=== PATIENT | female | born 1975 | race Caucasian/White ===

== ENCOUNTER 2023-08-27 12:10 | Inpatient (IN) | payer OTHER ==
[~2023-08-27] VITALS: Ht 172.7 cm; Wt 83.0 kg
[2023-08-27 12:41] VITALS: BP_SYST 121; PULSE 107; RESP 18; TEMP 98.3; O2SAT 100
[2023-08-27 14:19] LABS: BILIRUBIN,URINE 2+ (NEGATIVE); CLARITY/URINE SL CLOUDY (CLEAR); COLOR,URINE YELLOW (YELLOW); GLUCOSE,URINE TRACE (NEGATIVE); KETONES,URINE 3+ (NEGATIVE); LEUKOCYTE ESTERASE ,URINE NEGATIVE (NEGATIVE); NITRITE, URINE POSITIVE (NEGATIVE); PH,URINE 5.5 (5.0-8.0); PROTEIN URINE 1+ (NEGATIVE)
[2023-08-27 14:40] LABS: BLOOD, URINE TRACE (NEGATIVE)
[2023-08-27 14:46] LABS: WBC,URINE 20-50 /HPF (0-3)
[2023-08-27 14:47] LABS: BACTERIA,URINE MANY /HPF (None Seen); MUCUS,URINE 3+ /LPF (None Seen)
[2023-08-27] MEDS: NACL 0.9% 1,000 ML IV SCH (15:10)
[2023-08-27] MEDS: FAMOTIDINE PF 20 MG/2 ML VIAL IVP ONE (15:27)
[2023-08-27] MEDS: PANTOPRAZOLE SODIUM 40 MG/VIAL (PROTONIX) IVP ONE (15:27)
[2023-08-27] MEDS: cefTRIAXone 1 GM IVPB PREMIX 50 ML IV ONE (16:15)
[2023-08-27 17:10] LABS: BASOPHILS % (AUTO) 0.2 % (0.0-2.0); EOSINOPHILS % (AUTO) 0.2 % (0.0-4.0); HEMATOCRIT 31.4 % (36-48); LYMPHOCYTES # (AUTO) 1.3 K/uL (1.0-5.5); LYMPHOCYTES % (AUTO) 9.2 % (20.5-51.5); MEAN CORPUSCULAR HEMOGLOBIN 25 pg (27-31); MEAN CORPUSCULAR HGB CONC 32 % (32-36); MEAN CORPUSCULAR VOLUME 78 fL (79.0-98.0); MONOCYTES % (AUTO) 7.2 % (1.7-9.3); NEUTROPHILS % (AUTO) 83.2 % (40.0-70.0); PLATELET COUNT (AUTO) 438 K/uL (130-430); RED BLOOD CELL COUNT(AUTO) 4.04 MIL/uL (4.2-6.2); RED CELL DISTRIBUTION WIDTH 14.6 % (9.0-15.0); WHITE BLOOD COUNT (AUTO) 14.4 K/uL (4.8-10.8)
[2023-08-27 17:36] LABS: CALCIUM 8.7 mg/dL (8.4-11.0); CREATININE 0.73 mg/dL (0.55-1.30); POTASSIUM 3.9 mmol/L (3.5-5.1)
[2023-08-27 18:04] LABS: ALBUMIN 2.5 g/dL (3.4-4.8); BILIRUBIN,DIRECT 0.2 mg/dL (0.0-0.3); TOTAL BILIRUBIN 0.5 mg/dL (0.0-1.0)
[2023-08-27 18:46] LABS: PROTHROMBIN TIME 15.5 SECS (9.5-12.5)
[2023-08-27] MEDS ORDERED: NALOXONE HCL 0.4 MG/ML AMP (NARCAN) IVP PRN (21:15)
[2023-08-27] MEDS: HYDROmorphone 1 MG/ML INJ. CARTRIDGE IVP PRN (21:29)
[2023-08-27] MEDS ORDERED: PIPERACILLIN/TAZO 3.375/DEX-IS 50 ML IV SCH (22:00)
[2023-08-27 22:49] VITALS: BP_SYST 115; PULSE 93; RESP 16; TEMP 96.9
[2023-08-27] MEDS: PIPERACILLIN/TAZO 3.375/DEX-IS 50 ML IV SCH (23:26)
[2023-08-27 23:35] VITALS: O2SAT 96
[2023-08-28 08:01] VITALS: BP_SYST 112; PULSE 100; RESP 17; TEMP 97.7; O2SAT 94
[2023-08-28 11:30] VITALS: BP_SYST 111; PULSE 92; RESP 18; TEMP 98.5; O2SAT 96
[2023-08-28 17:01] VITALS: BP_SYST 104; PULSE 85; RESP 18; TEMP 98.3; O2SAT 95
[2023-08-28] MEDS: BISACODYL 5 MG TABLET.DR (DULCOLAX) PO ONE (17:33)
[2023-08-28] MEDS: GOLYTELY / COLYTE SOLUTION 4 LITERS PO ONE (17:33)
[2023-08-28 20:00] VITALS: BP_SYST 102; PULSE 82; RESP 18; TEMP 97.4; O2SAT 100
[2023-08-28] MEDS: ONDANSETRON HCL 4 MG/2 ML VIAL IVP PRN (22:29)
[2023-08-29] VITALS (7 sets, daily range): BP systolic 100–115; PULSE 59–89; RESP 16–18; TEMP 96–97.5; O2SAT 97–100
[2023-08-29 07:54] LABS: INR 1.5 (0.8-1.2); PROTHROMBIN TIME 15.5 SECS (9.5-12.5)
[2023-08-29] MEDS: MEPERIDINE 100 MG INJ. 100 MG/ML VIAL ONE (09:13)
[2023-08-29] MEDS: MIDAZOLAM HCL 5 MG/5 ML VIAL ONE (09:14)
[2023-08-29 20:17] LABS: PROTHROMBIN TIME 10.8 SECS (9.5-12.5)
[2023-08-30] VITALS: BP_SYST 103; PULSE 71; RESP 18; TEMP 97.5; O2SAT 98
[2023-08-30 04:00] VITALS: RESP 20
[2023-08-30 06:04] LABS: BASOPHILS % (AUTO) 0.8 % (0.0-2.0); EOSINOPHILS # (AUTO) 0.2 K/uL (0.0-0.4); EOSINOPHILS % (AUTO) 3.2 % (0.0-4.0); HEMATOCRIT 29.7 % (36-48); HEMOGLOBIN 9.7 g/dL (12.0-16.0); LYMPHOCYTES # (AUTO) 1.8 K/uL (1.0-5.5); LYMPHOCYTES % (AUTO) 32.4 % (20.5-51.5); MEAN CORPUSCULAR HEMOGLOBIN 25 pg (27-31); MEAN CORPUSCULAR HGB CONC 33 % (32-36); MEAN CORPUSCULAR VOLUME 77 fL (79.0-98.0); MONOCYTES # (AUTO) 0.4 K/uL (0.0-1.0); MONOCYTES % (AUTO) 7.9 % (1.7-9.3); NEUTROPHILS # (AUTO) 3.2 K/uL (1.8-7.7); NEUTROPHILS % (AUTO) 55.7 % (40.0-70.0); PLATELET COUNT (AUTO) 544 K/uL (130-430); RED BLOOD CELL COUNT(AUTO) 3.88 MIL/uL (4.2-6.2); RED CELL DISTRIBUTION WIDTH 15.1 % (9.0-15.0); WHITE BLOOD COUNT (AUTO) 5.7 K/uL (4.8-10.8)
[2023-08-30 07:29] LABS: TOTAL IRON BIND. CAPACITY 195 ug/dL (250-450)
[2023-08-30 08:05] VITALS: BP_SYST 99; PULSE 84; RESP 17; TEMP 98; O2SAT 99
[2023-08-30 10:51] VITALS: O2SAT 98
[2023-08-30 16:00] VITALS: BP_SYST 106; PULSE 80; RESP 18; TEMP 98; O2SAT 98
[2023-08-30 20:00] VITALS: BP_SYST 119; PULSE 84; RESP 20; TEMP 97.5; O2SAT 95; O2SAT 96
[2023-08-31 01:00] VITALS: BP_SYST 115; PULSE 78; RESP 20; TEMP 98.3; O2SAT 95
[2023-08-31 06:56] LABS: BASOPHILS % (AUTO) 0.8 % (0.0-2.0); EOSINOPHILS # (AUTO) 0.2 K/uL (0.0-0.4); HEMATOCRIT 29.9 % (36-48); HEMOGLOBIN 9.6 g/dL (12.0-16.0); LYMPHOCYTES % (AUTO) 34.9 % (20.5-51.5); MEAN CORPUSCULAR HEMOGLOBIN 25 pg (27-31); MEAN CORPUSCULAR HGB CONC 32 % (32-36); MEAN CORPUSCULAR VOLUME 78 fL (79.0-98.0); MONOCYTES # (AUTO) 0.4 K/uL (0.0-1.0); MONOCYTES % (AUTO) 7.4 % (1.7-9.3); NEUTROPHILS % (AUTO) 52.9 % (40.0-70.0); PLATELET COUNT (AUTO) 545 K/uL (130-430); RED BLOOD CELL COUNT(AUTO) 3.85 MIL/uL (4.2-6.2); RED CELL DISTRIBUTION WIDTH 15.2 % (9.0-15.0); WHITE BLOOD COUNT (AUTO) 5.6 K/uL (4.8-10.8)
[2023-08-31 07:12] LABS: CALCIUM 8.9 mg/dL (8.4-11.0); CREATININE 0.79 mg/dL (0.55-1.30); POTASSIUM 3.8 mmol/L (3.5-5.1)
[2023-08-31 08:06] VITALS: BP_SYST 90; PULSE 60; RESP 17; TEMP 98; O2SAT 98
[2023-08-31] MEDS ORDERED: PSYL575P22 PO (10:58)
[2023-08-31 13:06] VITALS: BP_SYST 110; PULSE 65; RESP 18; TEMP 98; O2SAT 98
[2023-08-31 13:24] VITALS: BP_SYST 110; PULSE 65; RESP 17; TEMP 98; O2SAT 98
== END 2023-08-31 14:20 | disposition home or self-care (01) | DRG 378 ==
LOC: SED 12:10 → SMU 20:06
PROVIDERS: ADMIT Specialist; ATTEND Specialist
PROC: 0DBP8ZX Excision of Rectum, Via Natural or Artificial Opening Endoscopic, Diagnostic (ICD-10-PCS; principal; 2023-08-29 09:00)
PROC: 0DBN8ZX Excision of Sigmoid Colon, Via Natural or Artificial Opening Endoscopic, Diagnostic (ICD-10-PCS; 2023-08-29 09:00)
DX: K92.1 Melena (principal); C18.9 Malignant neoplasm of colon, unspecified; C78.7 Secondary malignant neoplasm of liver and intrahepatic bile duct; D64.9 Anemia, unspecified; Z90.710 Acquired absence of both cervix and uterus
CPT/HCPCS: 36415; 45380; 45381; 71045; 71260; 76376; 80048; 80076; 81000; 81001; 81015; 82378; 83540; 83550; 85025; 85610; 85730; 87040; 87086; 87186; 88305; 93005; 99285; C9113; J0696; J1170; J2175; J2250; J2405; J2543; J3490; Q9967

== ENCOUNTER 2023-10-01 05:55 | Day surgery (SDC) | payer OTHER ==
[~2023-10-01] VITALS: Ht 175.3 cm; Wt 81.4 kg
[~2023-10-01 05:55] MED LIST: PSYL575P22 PO
[2023-10-01] MEDS ORDERED: ACETAMINOPHEN 500 MG TABLET ONE (06:28)
[2023-10-01] MEDS ORDERED: CELECOXIB 100 MG CAPSULE ONE (06:28)
[2023-10-01] MEDS ORDERED: GABAPENTIN 300 MG CAPSULE ONE (06:36)
[2023-10-01] MEDS: CELECOXIB 100 MG CAPSULE PO ONE (06:40)
[2023-10-01] MEDS: GABAPENTIN 300 MG CAPSULE PO ONE (06:40)
[2023-10-01] MEDS: ACETAMINOPHEN 500 MG TABLET PO ONE (06:40)
[2023-10-01] MEDS ORDERED: CEFAZOLIN SOD 2 GM in D5W 50 ML IV ONE (07:00)
[2023-10-01 07:05] LABS: HCG,QUAL RESULT NEGATIVE (NEGATIVE)
[2023-10-01] MEDS ORDERED: MIDAZOLAM HCL 5 MG/5 ML VIAL ONE (07:26)
[2023-10-01] MEDS ORDERED: fentaNYL CITRATE/PF 100 MCG/2 ML AMP ONE (07:26)
[2023-10-01] MEDS ORDERED: ePHEDrine sulfate 50 MG/ML VIAL ONE (07:30)
[2023-10-01] MEDS ORDERED: MORPHINE 4 MG INJ. 4 MG/ML VIAL IVP PRN ×2 (09:00)
[2023-10-01] MEDS ORDERED: ONDANSETRON HCL 4 MG/2 ML VIAL IVP PRN (09:00)
[2023-10-01] MEDS ORDERED: HYDROmorphone 1 MG/ML INJ. CARTRIDGE IVP PRN (09:00)
[2023-10-01 11:58] VITALS: O2SAT 99
[2023-10-01 12:33] VITALS: BP_SYST 95; PULSE 69; RESP 18; TEMP 97.1
== END 2023-10-01 11:00 | disposition home or self-care (01) ==
LOC: SMU 05:55 → SDS 05:55
PROVIDERS: ATTEND Surgery
DX: C18.9 Malignant neoplasm of colon, unspecified (principal); D64.9 Anemia, unspecified; Z98.891 History of uterine scar from previous surgery
CPT/HCPCS: 36561; 87081; 71045; 84703; 77001; 76937; J0690; J2250; J2704; J3010; J7060; J7120; C1788; 76000